=== PATIENT | female | born 1945 | race Asian ===

== ENCOUNTER 2017-03-22 20:07 | Emergency (ER) | payer OTHER ==
[~2017-03-22] VITALS: Ht 154.9 cm; Wt 53.5 kg
[2017-03-22 20:15] VITALS: BP_SYST 172
[2017-03-22] MEDS ORDERED: KETOROLAC TROMETHAMINE 60 MG/2 ML VIAL IM ONE (20:45)
[2017-03-22] MEDS ORDERED: LORazepam 1 MG TABLET PO ONE (22:00)
[2017-03-22 22:03] VITALS: BP_SYST 150
== END 2017-03-22 22:03 | disposition home or self-care (01) ==
LOC: SED 20:07
DX: R07.89 Other chest pain (principal); R51 Headache; M54.2 Cervicalgia; I10 Essential (primary) hypertension; Z90.89 Acquired absence of other organs
CPT/HCPCS: 70450; 71010; 72125; 82962; 96372; 99284; J1885